=== PATIENT | female | born 1970 | race Caucasian/White ===

== ENCOUNTER 2017-10-09 11:45 | Emergency (ER) | payer OTHER ==
[2017-10-09] MEDS: DEXAMETHASONE 10 MG/ML 1 ML INJ IM (13:11)
[2017-10-09] MEDS: KETOROLAC 30 MG INJ IM (13:14)
== END 2017-10-09 13:22 | disposition home or self-care (01) ==
LOC: FTE 11:45
DX: M25.561 Pain in right knee (principal)
CPT/HCPCS: 96372; 99284-25

== ENCOUNTER 2017-11-16 17:00 | Emergency (ER) | payer OTHER ==
[2017-11-16] MEDS: DEXAMETHASONE 10 MG/ML 1 ML INJ IM (20:24)
[2017-11-16] MEDS: KETOROLAC 30 MG INJ IM (20:24)
== END 2017-11-16 20:55 | disposition home or self-care (01) ==
LOC: FTE 17:00
DX: M25.561 Pain in right knee (principal); I10 Essential (primary) hypertension; Z87.891 Personal history of nicotine dependence
CPT/HCPCS: 96372; 99284-25

== ENCOUNTER 2017-12-24 03:51 | Emergency (ER) | payer OTHER | END 2017-12-24 06:57 | disposition home or self-care (01) | LOC: FTE 03:51 | DX: R23.8 Other skin changes (principal); I10 Essential (primary) hypertension; Z87.891 Personal history of nicotine dependence | CPT/HCPCS: 99282 ==

== ENCOUNTER 2018-01-11 15:43 | Emergency (ER) | payer OTHER ==
[2018-01-11] MEDS: CEPHALEXIN 500 MG CAP PO (16:54)
[2018-01-11] MEDS: traMADol 50 MG TAB PO (16:54)
== END 2018-01-11 17:44 | disposition home or self-care (01) ==
LOC: E/R 15:43 → FTE 17:44
DX: M25.571 Pain in right ankle and joints of right foot (principal); I10 Essential (primary) hypertension; Z87.891 Personal history of nicotine dependence
CPT/HCPCS: 73610; 73610-RT; 99284-25

== ENCOUNTER 2018-01-18 13:29 | Emergency (ER) | payer OTHER | END 2018-01-18 17:30 | disposition home or self-care (01) | LOC: FTE 13:29 | DX: S90.01XA Contusion of right ankle, initial encounter (principal); I10 Essential (primary) hypertension; F17.210 Nicotine dependence, cigarettes, uncomplicated; X58.XXXA Exposure to other specified factors, initial encounter; Y92.9 Unspecified place or not applicable | CPT/HCPCS: 73610; 73610-RT; 76536; 93971; 99285-25 ==

== ENCOUNTER 2018-01-23 09:45 | Emergency (ER) | payer OTHER ==
[2018-01-23] MEDS: ACETAMINOPHEN 500 MG TAB PO (11:09)
== END 2018-01-23 11:24 | disposition home or self-care (01) ==
LOC: FTE 09:45
DX: M25.571 Pain in right ankle and joints of right foot (principal); I10 Essential (primary) hypertension
CPT/HCPCS: 73590; 76536; 99284-25

== ENCOUNTER 2018-02-03 21:31 | Emergency (ER) | payer OTHER | END 2018-02-04 00:50 | disposition home or self-care (01) | LOC: E/R 02-04 00:50 | DX: I87.2 Venous insufficiency (chronic) (peripheral) (principal); F10.10 Alcohol abuse, uncomplicated; I10 Essential (primary) hypertension; E66.9 Obesity, unspecified; Z68.32 Body mass index [BMI] 32.0-32.9, adult | CPT/HCPCS: 93971; 99284-25 ==

== ENCOUNTER → 2018-02-03 | Emergency (ER) | payer OTHER | END | disposition home or self-care (01) | LOC: E/R 15:09 | DX: M79.604 Pain in right leg (principal); F31.9 Bipolar disorder, unspecified; I10 Essential (primary) hypertension; Z87.891 Personal history of nicotine dependence | CPT/HCPCS: 99283; Z7502 ==

== ENCOUNTER 2018-02-24 15:16 | Emergency (ER) | payer SELFPAY, OTHER | END 2018-02-24 18:27 | disposition left against medical advice (07) | LOC: FTE 15:16 | DX: Z53.21 Procedure and treatment not carried out due to patient leaving prior to being seen by health care provider (principal) ==

== ENCOUNTER 2018-04-04 22:46 | Emergency (ER) | payer OTHER ==
[2018-04-05] MEDS: AZITHROMYCIN 250 MG TAB PO (02:47)
[2018-04-05] MEDS: CEFTRIAXONE 250 MG INJ IM (02:48)
== END 2018-04-05 05:33 | disposition home or self-care (01) ==
LOC: FTE 22:46
DX: Z20.2 Contact with and (suspected) exposure to infections with a predominantly sexual mode of transmission (principal); I10 Essential (primary) hypertension
CPT/HCPCS: 87591; 96372; 99284-25

== ENCOUNTER 2018-08-09 15:12 | Emergency (ER) | payer OTHER ==
[2018-08-09 15:39] LABS: ADD MAN DIFF? NO
[2018-08-09 15:40] LABS: BASOPHILS % 0.7 % (0.0-2.0); EOSINOPHILS % 0.7 % (0.0-7.0); HEMATOCRIT 33.2 % (37.0-47.0); HEMOGLOBIN 10.1 g/dl (12.0-16.0); LYMPHOCYTES # 2.1 10^3/ul (0.8-2.9); MEAN CORPUSCULAR HEMOGLOBIN 25.6 pg (29.0-33.0); MEAN CORPUSCULAR HGB CONC 30.4 g/dl (32.0-37.0); MEAN CORPUSCULAR VOLUME 84.1 fl (82.0-101.0); MONOCYTE # 0.4 10^3/ul (0.3-0.9); MONOCYTES % 9.8 % (0.0-11.0); NEUTROPHIL # 1.6 10^3/ul (1.6-7.5); NEUTROPHILS % 38.8 % (39.0-77.0); PLATELET COUNT 210 10^3/UL (140-415); RED BLOOD COUNT 3.95 10^6/ul (4.20-5.40); RED CELL DISTRIBUTION WIDTH 20.4 % (11.5-14.5)
[2018-08-09 15:40] LABS: WHITE BLOOD COUNT 4.2 10^3/ul (4.8-10.8)
[2018-08-09] MEDS: LORAZEPAM 2 MG INJ IM (15:48)
[2018-08-09] MEDS: HALOPERIDOL 5 MG INJ IM (15:49)
[2018-08-09 15:59] LABS: ALANINE AMINOTRANSFERASE 45 IU/L (13-69); ALBUMIN/GLOBULIN RATIO 1.08; ALKALINE PHOSPHATASE 90 IU/L (42-121); ANION GAP 13 (5-13); ASPARTATE AMINO TRANSFERASE 116 IU/L (15-46); BILIRUBIN,INDIRECT 0.3 mg/dl (0-1.1); BILIRUBIN,TOTAL 0.3 mg/dl (0.2-1.3); BLOOD UREA NITROGEN 9 mg/dl (7-20); CALCIUM 8.2 mg/dl (8.4-10.2); CARBON DIOXIDE 25 mmol/L (21-31); CHLORIDE 107 mmol/L (97-110); CREATININE 0.54 mg/dl (0.44-1.00); Estimated GFR > 60 mL/min (>60); GLUCOSE 113 mg/dl (70-220); POTASSIUM 4.3 mmol/L (3.5-5.1); SODIUM 145 mmol/L (135-144); TOTAL PROTEIN 7.7 g/dl (6.1-8.1)
[2018-08-09 16:02] LABS: ACETAMINOPHEN < 10.0 ug/ml (10.0-30.0); SALICYLATE < 1.0 mg/dl (5.0-30.0)
[2018-08-09 18:54] LABS: ADD UMIC YES; UR ASCORBIC ACID NEGATIVE (NEGATIVE); UR BILIRUBIN (Dip) NEGATIVE (NEGATIVE); UR BLOOD (Dip) 1+ mg/dL (NEGATIVE); UR CLARITY CLEAR (CLEAR); UR COLOR STRAW (YELLOW); UR GLUCOSE (Dip) NEGATIVE (NEGATIVE); UR KETONES (Dip) NEGATIVE (NEGATIVE); UR LEUKOCYTE ESTERASE (Dip) NEGATIVE Leu/ul (NEGATIVE); UR NITRITE (Dip) NEGATIVE (NEGATIVE); UR RBC 0 /HPF (0-5); UR SPECIFIC GRAVITY (Dip) 1.006 (1.003-1.030); UR TOTAL PROTEIN (Dip) NEGATIVE (NEGATIVE); UR UROBILINOGEN (Dip) NEGATIVE (NEGATIVE); UR WBC 0 /HPF (0-5)
[2018-08-09 19:06] LABS: AMPHETAMINE/METHAMPHETAMINE Negative (NEGATIVE); BARBITURATES Negative (NEGATIVE); BENZODIAZEPINES Negative (NEGATIVE); CANNABINOIDS Negative (NEGATIVE); COCAINE Negative (NEGATIVE); OPIATES Negative (NEGATIVE)
[2018-08-10] MEDS: CHLORDIAZEPOXIDE 25 MG CAP PO (05:55)
== END 2018-08-10 10:20 ==
LOC: E/R 08-10 10:20
DX: T14.91XA Suicide attempt, initial encounter (principal); F10.929 Alcohol use, unspecified with intoxication, unspecified; R40.2132 Coma scale, eyes open, to sound, at arrival to emergency department; R40.2252 Coma scale, best verbal response, oriented, at arrival to emergency department; R40.2362 Coma scale, best motor response, obeys commands, at arrival to emergency department; I10 Essential (primary) hypertension; X58.XXXA Exposure to other specified factors, initial encounter; Y92.9 Unspecified place or not applicable
CPT/HCPCS: 36415; 80053; 80307; 81001; 85025; 93005; 96372; 99285-25

== ENCOUNTER 2018-11-13 21:33 | Emergency (ER) | payer OTHER ==
[2018-11-13] MEDS: LORAZEPAM 1 MG TAB PO (22:53)
[2018-11-13 23:15] LABS: ADD MAN DIFF? NO
[2018-11-13 23:22] LABS: WHITE BLOOD COUNT 4.2 10^3/ul (4.8-10.8)
[2018-11-13 23:22] LABS: BASOPHILS % 0.5 % (0.0-2.0); EOSINOPHILS % 0.2 % (0.0-7.0); HEMATOCRIT 31.3 % (37.0-47.0); HEMOGLOBIN 10.1 g/dl (12.0-16.0); LYMPHOCYTES % 48.8 % (15.0-51.0); MEAN CORPUSCULAR HEMOGLOBIN 27.6 pg (29.0-33.0); MEAN CORPUSCULAR HGB CONC 32.3 g/dl (32.0-37.0); MEAN CORPUSCULAR VOLUME 85.5 fl (82.0-101.0); MEAN PLATELET VOLUME 8.8 fl (7.4-10.4); MONOCYTE # 0.2 10^3/ul (0.3-0.9); MONOCYTES % 4.8 % (0.0-11.0); NEUTROPHIL # 1.9 10^3/ul (1.6-7.5); NEUTROPHILS % 45.5 % (39.0-77.0); PLATELET COUNT 288 10^3/UL (140-415); RED BLOOD COUNT 3.66 10^6/ul (4.20-5.40); RED CELL DISTRIBUTION WIDTH 18.6 % (11.5-14.5)
[2018-11-13 23:38] LABS: ANION GAP 11 (5-13); BLOOD UREA NITROGEN 10 mg/dl (7-20); CALCIUM 8.3 mg/dl (8.4-10.2); CARBON DIOXIDE 26 mmol/L (21-31); CHLORIDE 104 mmol/L (97-110); CREATININE 0.56 mg/dl (0.44-1.00); Estimated GFR > 60 mL/min (>60); GLUCOSE 94 mg/dl (70-220); POTASSIUM 3.8 mmol/L (3.5-5.1); SODIUM 141 mmol/L (135-144)
== END 2018-11-13 23:55 | disposition left against medical advice (07) ==
LOC: FTE 23:55
DX: R42 Dizziness and giddiness (principal); I10 Essential (primary) hypertension
CPT/HCPCS: 80048; 85025; 93005; 99284-25

== ENCOUNTER 2018-11-15 12:04 | Emergency (ER) | payer OTHER | END 2018-11-15 16:07 | disposition left against medical advice (07) | LOC: E/R 16:07 | DX: M79.661 Pain in right lower leg (principal); M79.662 Pain in left lower leg; F10.920 Alcohol use, unspecified with intoxication, uncomplicated; I10 Essential (primary) hypertension; R40.2142 Coma scale, eyes open, spontaneous, at arrival to emergency department; R40.2252 Coma scale, best verbal response, oriented, at arrival to emergency department; R40.2362 Coma scale, best motor response, obeys commands, at arrival to emergency department; Z76.0 Encounter for issue of repeat prescription | CPT/HCPCS: 99283; Z7502 ==

== ENCOUNTER 2019-02-13 11:24 | Emergency (ER) | payer OTHER ==
[2019-02-13] MEDS: ACETAMINOPHEN 325 MG TAB PO (13:47)
== END 2019-02-13 13:49 | disposition home or self-care (01) ==
LOC: E/R 11:24
DX: R51 Headache (principal); I10 Essential (primary) hypertension
CPT/HCPCS: 70450; 99284-25

== ENCOUNTER 2019-02-14 04:58 | Emergency (ER) | payer OTHER ==
[2019-02-14] MEDS: DIAZEPAM 5 MG/ML SYG IV (07:17)
[2019-02-14] MEDS: DEXTROSE 5%-0.45% NACL 500 ML BAG IV (07:17)
[2019-02-14] MEDS: THIAMINE 100 MG TAB PO (07:17)
[2019-02-14] MEDS: SOD CHLORIDE 0.9% 1,000 ML IV (07:17)
[2019-02-14] MEDS: FOLIC ACID 1 MG TAB PO (07:17)
[2019-02-14 07:32] LABS: ADD MAN DIFF? NO
[2019-02-14 07:34] LABS: BASOPHIL # 0.1 10^3/ul (0.0-0.1); BASOPHILS % 0.8 % (0.0-2.0); EOSINOPHILS % 0.2 % (0.0-7.0); LYMPHOCYTES # 0.9 10^3/ul (0.8-2.9); LYMPHOCYTES % 13.7 % (15.0-51.0); MEAN CORPUSCULAR HEMOGLOBIN 26.6 pg (29.0-33.0); MEAN CORPUSCULAR HGB CONC 32.3 g/dl (32.0-37.0); MEAN CORPUSCULAR VOLUME 82.4 fl (82.0-101.0); MEAN PLATELET VOLUME 9.5 fl (7.4-10.4); MONOCYTE # 0.4 10^3/ul (0.3-0.9); MONOCYTES % 5.4 % (0.0-11.0); NEUTROPHIL # 5.3 10^3/ul (1.6-7.5); NEUTROPHILS % 79.7 % (39.0-77.0); PLATELET COUNT 259 10^3/UL (140-415); RED BLOOD COUNT 3.76 10^6/ul (4.20-5.40); RED CELL DISTRIBUTION WIDTH 17.6 % (11.5-14.5)
[2019-02-14 07:34] LABS: WHITE BLOOD COUNT 6.6 10^3/ul (4.8-10.8)
[2019-02-14 07:54] LABS: ALANINE AMINOTRANSFERASE 24 IU/L (13-69); ALBUMIN 3.9 g/dl (3.3-4.9); ALBUMIN/GLOBULIN RATIO 1.14; ALKALINE PHOSPHATASE 86 IU/L (42-121); ANION GAP 12 (5-13); ASPARTATE AMINO TRANSFERASE 36 IU/L (15-46); BILIRUBIN,INDIRECT 0.8 mg/dl (0-1.1); BILIRUBIN,TOTAL 0.8 mg/dl (0.2-1.3); BLOOD UREA NITROGEN 8 mg/dl (7-20); CARBON DIOXIDE 25 mmol/L (21-31); CHLORIDE 101 mmol/L (97-110); CREATININE 0.49 mg/dl (0.44-1.00); Estimated GFR > 60 mL/min (>60); GLUCOSE 92 mg/dl (70-220); INR 0.93; LIPASE 156 U/L (23-300); POTASSIUM 3.5 mmol/L (3.5-5.1); PROTIME 12.6 Sec (11.9-14.9); SODIUM 138 mmol/L (135-144); TOTAL PROTEIN 7.3 g/dl (6.1-8.1)
[2019-02-14 07:55] LABS: PARTIAL THROMBOPLASTIN TIME 29.6 Sec (23.0-35.0)
[2019-02-14 08:52] LABS: URINE BLOOD (Dip) POC Negative (NEGATIVE); URINE GLUCOSE (Dip) POC Negative (NEGATIVE); URINE KETONES (Dip) POC 2+ (NEGATIVE); URINE LEUKOCYTE EST (Dip) POC Negative (NEGATIVE); URINE NITRITE (Dip) POC Negative (NEGATIVE); URINE TOTAL PROTEIN POC Negative (NEGATIVE)
[2019-02-14 08:52] LABS: URINE PH (Dip) POC 5.5 (5.0-8.5)
== END 2019-02-14 16:17 | disposition home or self-care (01) ==
LOC: E/R 04:58
DX: F10.230 Alcohol dependence with withdrawal, uncomplicated (principal); I10 Essential (primary) hypertension; R20.2 Paresthesia of skin; F07.81 Postconcussional syndrome; G44.309 Post-traumatic headache, unspecified, not intractable
CPT/HCPCS: 36415; 70450; 70551; 72141; 80053; 81003; 81025; 83690; 85025; 85610; 85730; 96374; 96375; 99285-25